=== PATIENT | male | born 1945 | race African-American/Black ===

== ENCOUNTER 2016-02-17 15:54 | Emergency (ER) | payer MEDICARE ==
--- NOTE | 2016-02-17 17:01 | Emergency Department Report ---
Chief Complaint: Dizziness Stated Complaint: DIZZINESS/VOMIT/HBP Time Seen by Provider: 02/17/16 16:50 - HPI History of Present Illness: -year-old male comes in for concern for dizziness. Patient reports that he woke up this morning and went to void and then he became dizziness patient has nausea and vomited 2 and he reports a high blood pressure decreased appetite and decreased oral intake he does report he recently started taking a probiotic pill for stomach pain denies any headache no chest pain no fever no chills - Exam Vital Signs: Vital Signs 02/17/16 16:23 Temperature 98.3 F Pulse Rate 73 Respiratory 18 Rate Blood Pressure 147/95 O2 Sat by Pulse 99 Oximetry MSE screening note: Focused history and physical exam performed. Due to findings the following was ordered: CBC CMP ordered patient be evaluated in the main ER ED Disposition for MSE Condition: Stable
[2016-02-17 17:14] LABS: Basophils % (Auto) 0.2 % (0.0-1.8); Eosinophils % (Auto) 0.1 % (0.0-4.3); Hematocrit 42.1 % (35.5-45.6); Hemoglobin 14.5 gm/dl (11.8-15.2); Mean Corpuscular HGB Conc 34 % (32-34); Mean Corpuscular Hemoglobin 31 pg (28-32); Mean Corpuscular Volume 90 fl (84-94); Platelet Count 241 K/mm3 (140-440); Red Blood Count 4.69 M/mm3 (3.65-5.03); Red Cell Distribution Width 13.4 % (13.2-15.2); White Blood Count 10.2 K/mm3 (4.5-11.0)
[2016-02-17 17:25] LABS: BUN/Creatinine Ratio 12.22; Blood Urea Nitrogen 11 mg/dL (9-20); Calcium 8.4 mg/dL (8.4-10.2); Carbon Dioxide 25 mmol/L (22-30); Chloride 99.2 mmol/L (98-107); Glucose 151 mg/dL (75-100); Potassium 4.6 mmol/L (3.6-5.0); Sodium 139 mmol/L (137-145)
[2016-02-17 17:29] LABS: Anion Gap 19 mmol/L
[2016-02-18] MEDS ORDERED: ANTIVERT PO ONE (02:20)
[2016-02-18] MEDS ORDERED: ZOFRAN ODT PO ONE (02:22)
--- NOTE | 2016-02-18 02:27 | Emergency Department Report ---
HPI - General Chief Complaint: Dizziness Time Seen by Provider: 02/17/16 16:50 - HPI HPI: Room 10 The patient is a 70-year-old male presenting with a chief complaint of dizziness. Family states the patient awakened earlier this morning in his normal state of health. Family states the patient went to the bathroom and urinated and then began feeling dizzy. Family states the patient complained of feeling chilly and cold so they subsequently rub oil on his body. Family checked the patient's blood pressure and felt him to be hypertensive at 172 systolic. They state he had not taken his blood pressure medication at this time. The patient subsequently his blood pressure medication and Tylenol family states the blood pressure decreased. At noon the patient ate food. The patient acknowledged he was still dizzy but not as severe as the onset of his symptoms. At approximate 14:00 the patient vomited and at 15:00 he requested to come to the emergency department. Family states on the ride to the emergency department which she made a turn in the car he again complained of severe dizziness and had a second episode of vomiting. Patient denied having headache, chest pain, shortness of breath, diarrhea or abdominal pain at any time. Patient denies any preceding trauma. Patient currently feels hungry, thirsty and dizzy Location: Head Duration: Constant since this morning Quality: Vertigo Severity:. Moderate Modifying factors: [see above] Context: [see above] Mode of transportation: [not driving] ED Past Medical Hx - Past Medical History Previous Medical History?: Yes Hx Hypertension: Yes Additional medical history: high cholesterol - Surgical History Past Surgical History?: No - Family History Family history: no significant - Social History Smoking Status: Never Smoker Substance Use Type: Prescribed, Other - Medications Home Medications: Home Medications Medication Instructions Recorded Confirmed Last Taken Type Acetaminophen [Acetaminophen 8 1 dose PRN 02/17/16 02/17/16 History Hour] Fenofibrate [Tricor] 48 mg PO QDAY 02/17/16 02/17/16 02/16/16 History [place]-3 1 tab PO DAILY 02/17/16 02/17/16 Unknown History Trubiotics 1 tab PO DAILY 02/17/16 Unknown History amLODIPine [Norvasc] 5 mg PO DAILY 02/17/16 02/17/16 02/17/16 History Meclizine [Antivert] 25 mg PO TID PRN #20 tablet 02/18/16 Unknown Rx Ondansetron [Zofran ODT TAB] 8 mg PO Q8HR #20 tab.rapdis 02/18/16 Unknown Rx ED Review of Systems ROS: Stated complaint: DIZZINESS/VOMITTING/HBP Other details as noted in HPI Comment: All other systems reviewed and negative Constitutional: denies: chills, fever Eyes: denies: eye pain, eye discharge, vision change ENT: denies: ear pain, throat pain Respiratory: denies: cough, shortness of breath, wheezing Cardiovascular: denies: chest pain, palpitations Endocrine: no symptoms reported Gastrointestinal: nausea, vomiting Genitourinary: denies: urgency, dysuria Musculoskeletal: denies: back pain, joint swelling, arthralgia Skin: denies: rash, lesions Neurological: vertigo. denies: headache Psychiatric: denies: anxiety, depression Hematological/Lymphatic: denies: easy bleeding, easy bruising Physical Exam - Physical Exam Vital Signs: Vital Signs 02/17/16 16:23 Temperature 98.3 F Pulse Rate 73 Respiratory 18 Rate Blood Pressure 147/95 O2 Sat by Pulse 99 Oximetry Physical Exam: GENERAL: The patient is well-developed well-nourished male lying on stretcher not appearing to be in acute distress. [] HEENT: Normocephalic. Atraumatic. Extraocular motions are intact. Patient has moist mucous membranes. No nystagmus noted NECK: Supple. Trachea midline CHEST/LUNGS: Clear to auscultation. There is no respiratory distress noted. HEART/CARDIOVASCULAR: Regular. There is no tachycardia. There is no gallop rub or murmur. ABDOMEN: Abdomen is soft, nontender. Patient has normal bowel sounds. There is no abdominal distention. SKIN: There is no rash. There is no edema. There is no diaphoresis. NEURO: The patient is awake, alert, and oriented. The patient is cooperative. The patient has no focal neurologic deficits. The patient has normal speech. Cranial nerves II through XII grossly intact, no drift, office coordinator equal/5+/5 bilaterally. There is no dysmetria noted with [id number] bilaterally MUSCULOSKELETAL: There is no evidence of acute injury. ED Course Vital Signs 02/17/16 16:23 Temperature 98.3 F Pulse Rate 73 Respiratory 18 Rate Blood Pressure 147/95 O2 Sat by Pulse 99 Oximetry - Reevaluation(s) Reevaluation #1: 02/18/16 03:55 Patient states he feels improved ED Medical Decision Making - Lab Data Result diagrams: 02/17/16 17:02 02/17/16 17:02 Laboratory Tests 02/17/16 02/17/16 02/17/16 17:02 17:02 17:02 WBC 10.2 RBC 4.69 Hgb 14.5 Hct 42.1 MCV 90 MCH 31 MCHC 34 RDW 13.4 Plt Count 241 Lymph % (Auto) 10.5 L [place] % (Auto) 5.8 Eos % (Auto) 0.1 Baso % (Auto) 0.2 Lymph # 1.1 L [place] # 0.6 Eos # 0.0 Baso # 0.0 Seg Neutrophils % 83.4 H Seg Neutrophils # 8.5 H Sodium 139 Potassium 4.6 Chloride 99.2 Carbon Dioxide 25 Anion Gap 19 BUN 11 Creatinine 0.9 Estimated GFR > 60 BUN/Creatinine Ratio 12.22 Glucose 151 H Calcium 8.4 Total Creatine Kinase 89 CK-MB (CK-2) 1.8 CK-MB (CK-2) Rel Index 2.0 Troponin T < 0.010 - EKG Data -: EKG Interpreted by Pr EKG shows normal: sinus rhythm Rate: normal - EKG Data When compared to previous EKG there are: previous EKG unavailable Interpretation: other (no ischemic changes seen) - Radiology Data Radiology results: report reviewed (CT head), image reviewed (CT head) CT head (read by radiologist)-no acute findings - Differential Diagnosis Central vertigo, peripheral vertigo, ACS, dehydration Critical care attestation.: If time is entered above; I have spent that time in minutes in the direct care of this critically ill patient, excluding procedure time. ED Disposition Clinical Impression: Vertigo Disposition: DISCHARGED TO HOME OR SELFCARE Is pt being admited?: No Does the pt Need Aspirin: No Condition: Stable Instructions: Vertigo (ED) Additional Instructions: Return to the emergency department immediately should you develop worsening symptoms, fever, inability to tolerate food or liquid or any other concerns. Prescriptions: Meclizine [Antivert] 25 mg PO TID PRN #20 tablet PRN Reason: Vertigo Ondansetron [Zofran ODT TAB] 8 mg PO Q8HR #20 tab.rapdis Referrals: ISABEL DILLON MD [Primary Care Provider] - 3-5 Days KAM PAUL MD [Staff Physician] - 2-3 Days (Dr. Paul is a neurologist. Please follow up with him for further evaluation) Time of Disposition: 03:58
[2016-02-18 02:48] LABS: Creatine Kinase MB 1.8 ng/mL (0.0-4.0)
[2016-02-18 02:49] LABS: Creatine Kinase 89 units/L (55-170)
--- NOTE | 2016-02-18 03:23 | Cat Scan Report ---
FINAL REPORT PROCEDURE: CT HEAD/BRAIN WO CON TECHNIQUE: Computerized tomography of the head was performed without contrast material. HISTORY: dizziness, nausea, vomiting COMPARISON: No prior studies are available for comparison. FINDINGS: Skull and scalp: Normal. Paranasal sinuses: Normal. Ventricles and subarachnoid spaces: Normal. Cerebrum: No evidence of hemorrhage, acute infarction or mass. Mild atrophy is identified.. Cerebellum and brainstem: No evidence of hemorrhage, acute infarction or mass. Vasculature: Normal. Comments: None. IMPRESSION: There is no evidence of an acute intracranial process.
[2016-02-18 03:48] VITALS: BP 139/81
== END 2016-02-18 04:25 | disposition home or self-care (01) ==
LOC: ED 15:54
DX: R42 Dizziness and giddiness (principal); I10 Essential (primary) hypertension; E78.00 Pure hypercholesterolemia, unspecified
CPT/HCPCS: 36415; 70450; 80048; 82550; 82553; 84484; 85025; 93005; 93010; Q0162